=== PATIENT | male | born 1990 | race American Indian/Alaskan Native ===

== ENCOUNTER 2018-06-10 00:37 | Emergency (ER) | payer OTHER ==
[2018-06-10 01:18] VITALS: TEMP 98.5; O2SAT 100
[2018-06-10] MEDS ORDERED: Morphine 4 MG/ML VIAL IVP STA (01:49)
[2018-06-10] MEDS ORDERED: Sodium Chloride 0.9% 50 ML IV ONE (02:10)
[2018-06-10] MEDS ORDERED: Iohexol 300 100 ML IJ ONE (02:10)
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
[2018-06-10 02:52] LABS: BASO # 0.2 K/uL (0.0-0.2); BASO % 1.2 % (0.0-2.0); EOS # 0.2 K/uL (0.0-0.7); EOS % 1.6 % (0.0-4.0); HEMOGLOBIN 14.3 g/dL (12.0-18.0); LYMPH # 1.4 K/uL (1.0-4.3); MEAN CORPUSCULAR HEMOGLOBIN 32.2 pg (27.0-31.0); MEAN CORPUSCULAR HGB CONC 33.5 g/dL (33.0-37.0); MEAN PLATELET VOLUME 10.6 fl (7.2-11.7); MONO # 1.2 K/uL (0.0-0.8); MONO % 9.2 % (0.0-10.0); NEUT # 9.7 K/uL (1.8-7.0); NRBC % 0.1 % (0.0-0.0); RBC 4.44 Mil/uL (4.40-5.90); RED CELL DISTRIBUTION WIDTH 14.1 % (11.5-14.5); WHITE BLOOD COUNT 12.6 K/uL (4.8-10.8)
[2018-06-10 03:00] LABS: ALB/GLOB RATIO 1.1 (1.0-2.1); ALBUMIN 4.4 g/dL (3.5-5.0); ALT/SGPT 84 U/L (21-72); AST/SGOT 97 U/L (17-59); BLOOD UREA NITROGEN 6 mg/dl (9-20); CALCIUM 9.2 mg/dL (8.4-10.2); GFR AFRICAN-AMERICAN > 60; GFR NON-AFRICAN AMERICAN > 60
[2018-06-10 03:01] LABS: INR 1.1 (0.9-1.2); PARTIAL THROMBOPLASTIN TIME 26.4 Seconds (25.6-37.1); PROTHROMBIN TIME 12.5 Seconds (9.8-13.1)
[2018-06-10] MEDS ORDERED: Oxycodone/Acetaminophen 5/325 mg Tab PO STA (05:22)
[2018-06-10] MEDS ORDERED: Oxycodone/Acetaminophen 5/325 mg Tab ONE (05:54)
--- NOTE | 2018-06-10 07:07 | ED PDOC ---
- Laboratory Results Result Diagrams: 06/10/18 02:48 06/10/18 02:48 - ECG O2 Sat by Pulse Oximetry: 100 (RA) Medical Decision Making Medical Decision Making: Time: 0700 --Patient is endorsed to provider by Dr. Martinez, pending xray results and re- evaluation. Scribe Attestation: Documented by Sade Hernández, acting as a scribe for Jesse Brennan III, DO. Provider Scribe Attestation: All medical record entries made by the Scribe were at my direction and personally dictated by me. I have reviewed the chart and agree that the record accurately reflects my personal performance of the history, physical exam, medical decision making, and the department course for this patient. I have also personally directed, reviewed, and agree with the discharge instructions and disposition. Disposition - Disposition Forms: [employer] (Kyr[place]z)
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
--- NOTE | 2018-06-10 11:20 | RAD ---
Date of service: 06/10/2018 PROCEDURE: Left Knee Radiographs. HISTORY: Pain. COMPARISON: None. FINDINGS: BONES: No acute foot. JOINTS: Unremarkable. JOINT EFFUSION: None. OTHER FINDINGS: None. IMPRESSION: No demonstrated fracture or dislocation.
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
[2018-06-10 17:26] VITALS: BP 118/75; PULSE 82; RESP 18
== END 2018-06-10 17:07 | disposition home or self-care (01) ==
LOC: H.ER 00:37
DX: S62.316A Displaced fracture of base of fifth metacarpal bone, right hand, initial encounter for closed fracture (principal); S80.02XA Contusion of left knee, initial encounter; V03.90XA Pedestrian on foot injured in collision with car, pick-up truck or van, unspecified whether traffic or nontraffic accident, initial encounter; Y92.410 Unspecified street and highway as the place of occurrence of the external cause
CPT/HCPCS: 70450; 71260; 72125; 73130; 73562; 73630; 74177; 80053; 85025; 85610; 85730; 86850; 86900; 96374; 96376; 99284; G0480; J2270; Q9967